=== PATIENT | male | born 1985 | race Caucasian/White ===

== ENCOUNTER 2023-04-28 19:54 | Outpatient (OUT) | payer OTHER, SELFPAY | END 2023-04-28 19:55 | disposition home or self-care (01) | LOC: SLEEP 19:54 | PROVIDERS: PCP Nurse Practitioner; Visit Provider Nurse Practitioner | DX: G47.33 Obstructive sleep apnea (adult) (pediatric) (principal); G47.411 Narcolepsy with cataplexy | CPT/HCPCS: 95810 ==

== ENCOUNTER 2023-06-28 19:47 | Outpatient (OUT) | payer OTHER, SELFPAY | END 2023-06-28 19:48 | disposition home or self-care (01) | LOC: SLEEP 19:47 | PROVIDERS: PCP Nurse Practitioner; Visit Provider Nurse Practitioner | DX: G47.33 Obstructive sleep apnea (adult) (pediatric) (principal) | CPT/HCPCS: 95811 ==